=== PATIENT | male | born 1970 | race Two or more races ===

== ENCOUNTER 2024-06-04 05:54 | Day surgery (SDC) | payer OTHER ==
[2024-05-27 13:35] VITALS: BP 157/82
[~2024-06-04] VITALS: Ht 170.2 cm; Wt 76.2 kg
[~2024-06-04 05:54] MED LIST: COZAAR25 MG PO; GEMFIBROZIL600 MG PO
[2024-06-04] MEDS ORDERED: DEXAMETHASONE SODIUM PHOSPHATE 4 MG/ML VIAL IV ONE (10:00)
[2024-06-04] MEDS ORDERED: MORPHINE SULFATE 4 MG/ML VIAL IV ONE (11:30)
== END 2024-06-04 14:50 | disposition home or self-care (01) ==
LOC: SURH 05:54 → CIR.AMB 05:54 → O/R 05:54 → SURH 09:15 → EDSTATUS 11:15 → CIR.AMB 14:50 → O/R 14:50
PROVIDERS: ATTEND Surgery
DX: C73 Malignant neoplasm of thyroid gland (principal); E04.1 Nontoxic single thyroid nodule